=== PATIENT | female | born 1945 | race Caucasian/White ===

== ENCOUNTER 2016-10-20 14:43 | Observation (INO) | payer OTHER ==
--- NOTE | ~2016-10-20 | HP ---
History And Physical [place] [id number] [facility] [place]. [address] NAME: CATY ELY : 45 STATUS : ADM Vianey PAT#: [id number] AGE: 71 ADM/REG DATE : 10/20/16 MR#: [id number] REPORT SERV DATE: 10/20/16 DICTATED BY: WILL ROQUE DATE: 10/20/16 REPORT STATUS : Draft TRANSCRIBED BY: MODL DATE: 10/20/16 DATE OF ADMISSION: 10/20/2016 PRIMARY CARE PROVIDER: Dr. Christopher Soto. LEAK DETECTOR: Dr. Trip Ruiz. CHIEF COMPLAINT: Chest pain worse with exertion and ALFARO. 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 She states approximately one week ago, she awoke with a choking sensation and some chest pressure. She also reports dyspnea on exertion such as taking stairs. With her chest pain, it is sometimes associated with shortness of breath, nausea, dizziness, and belching. She denies any diaphoresis. She reports weakness and fatigue. Chest pain at its most intense was rated a 7/10. At the time of interview in the ER, she is pain-free. The episodes last approximately 5 minutes in duration. She states that many episodes occur with activity and resolve with rest. She reports she has episodes of chest pain daily that are on and off throughout the day. The patient self reports heart attack 10 years ago but no intervention; stroke 20 years ago with no deficit. Denies history of PE or DVT. The patient denies any fever or chills. No palpitations. No syncopal episodes. Denies PND or orthopnea. Of note, the patient states that she ran out of Protonix some time ago and has not had her prescription refilled. PAST MEDICAL HISTORY: 1. Self reports an [place] with no intervention. 2. History of stroke with no deficit. 3. Hypertension. 4. Dyslipidemia. 5. Denies diabetes. 6. GERD. 7. Aortic valve murmur. 8. Glaucoma. 9. Hiatal hernia. PAST SURGICAL HISTORY: 1. Cholecystectomy. 2. Ovarian cyst removed. 3. Tonsillectomy. SOCIAL HISTORY: She is , with three children. She is a retired relations specialist. She walks 3 times weekly for approximately 20 minutes although reports episodes of dyspnea. History And Physical [address] [address] NAME: CATY ELY : 45 STATUS : ADM Vianey PAT#: [id number] AGE: 71 ADM/REG DATE : 10/20/16 MR#: [id number] REPORT SERV DATE: 10/20/16 DICTATED BY: WILL ROQUE DATE: 10/20/16 REPORT STATUS : Draft TRANSCRIBED BY: TEN DATE: 10/20/16 Denies tobacco, alcohol, or illicits. FAMILY HISTORY: No embolic events reported in first-degree relatives. REVIEW OF SYSTEMS: A 14-point review of systems performed, significant for HPI including snores per report with no formal sleep study and recently ran out of her Protonix prescription, otherwise, complete review of systems obtained and negative. ALLERGIES: ALLERGY TO ANTIHISTAMINES, HALLUCINATIONS, HEART RACING; SULFA, HEADACHE; MORPHINE, NAUSEA AND VOMITING; CODEINE, HALLUCINATES, HEART RACES; SULFA, HEADACHE; AND ADHESIVE TAPE, RASH. HOME MEDICATIONS: 1. Amlodipine 5 mg daily. 2. Vitamin D 1200 mg twice daily. 3. Nexium 40 mg daily. 4. Maximum D3 weekly. 5. Spironolactone 25 mg daily. 6. Atenolol 50 mg daily. 7. Aspirin 81 mg daily. 8. Lisinopril 20 mg daily. 9. Pravastatin 20 mg daily. 10.Systane. 11.Afrin spray p.r.n. 12.Antivert 12.5 mg p.r.n. PHYSICAL EXAMINATION: VITAL SIGNS: Blood pressure 135/62, pulse 56, respirations 19, and temperature 98.7. HEENT: Height 5 feet 2 inches. Weight 158 pounds. GENERAL: Cooperative, in no apparent distress. HEENT: Pupils 2 mm, sclera nonicteric. Nares patent. Moist mucous membranes. No xanthelasma. NECK: Trachea midline, no thyromegaly. No JVD. No bruits. LYMPH: No cervical lymphadenopathy. No supraclavicular lymphadenopathy. RESPIRATORY: Unlabored respirations. Breath sounds clear bilaterally to posterior auscultation. No wheezes or rhonchi. CARDIOVASCULAR: Regular rate. No rub or gallop appreciated. A 2/6 murmur best audible at the right sternal border. EXTREMITIES: Without edema. Pulses 2+ bilaterally. ABDOMEN: Soft, nontender, nondistended, normal bowel sounds auscultated throughout. No organomegaly. SKIN: Warm, dry extremities. No pallor, or cyanosis. PSYCHIATRIC: Appropriate affect. Alert, oriented x3. LABORATORY DATA: 1. Troponin 0.03, second pending. Potassium 4.1, BUN 17, creatinine 0.84, glucose 109, and magnesium 2.3. WBC 7.1, hemoglobin 14.7, hematocrit 43.3, and platelet count History And Physical [address] [address] NAME: CATY ELY : 45 STATUS : ADM Vianey PAT#: [id number] AGE: 71 ADM/REG DATE : 10/20/16 MR#: [id number] REPORT SERV DATE: 10/20/16 DICTATED BY: WILL ROQUE DATE: 10/20/16 REPORT STATUS : Draft TRANSCRIBED BY: TEN DATE: 10/20/16 302,000. EKG sinus rhythm. RBBB, inferior Q-waves. 2. Echo 2013: Mild aortic stenosis with mild regurgitation. Mild diastolic dysfunction. 3. MPI 2014: No ischemia. 4. Catheterization in 1997 (CONN: Normal coronaries). EF 60%. 5. Chest pain with exertional component. The patient will be observed in the CPOU to rule out myocardial infarction with serial enzymes and serial EKGs and held n.p.o. for MPI in the morning. If second troponin negative, the patient will be discharged home; if low risk, no ischemia, if anything suggestive of ischemia, Cardiology referral will be initiated. Otherwise, the patient will be asked to follow up with PCP in one to two weeks with all studies being sent to their office. 6. ALFARO. Check echocardiogram and TSH. 7. Hypertension. Continue home medications. Hold atenolol. 8. Dyslipidemia. Continue statin. 9. GERD. Continue Protonix. AUGUSTINE/TEN TEE Stevenson, SCREEN PRINTING PASTER-BC / [id number] CC: TEE Stevenson, SCREEN PRINTING PASTER-BC Christopher Soto M.D. Trip Ruiz M.D.
[2016-10-20 11:41] LABS: BASOPHILS 0.6 %; BASOPHILS ABSOLUTE 0.04 10/3/uL (0.0-0.16); EOSINOPHILS 2.1 %; EOSINOPHILS ABSOLUTE 0.15 10/3/uL (0.0-0.53); HEMATOCRIT 43.3 % (36.0-48.0); HEMOGLOBIN 14.7 g/dL (12.0-16.0); IMMATURE GRANULOCYTES 0.3 %; IMMATURE GRANULOCYTES ABSOLUTE 0.02 10/3/uL (0.0-0.11); LYMPHOCYTES 27.1 %; LYMPHOCYTES ABSOLUTE 1.93 10/3/uL (0.67-4.30); MANUAL DIFF NO %; MEAN CORPUS HGB CONC 33.9 g/dL (32.0-36.0); MEAN CORPUSCULAR HEMOGLOB 30.8 pg (26.0-34.0); MEAN CORPUSCULAR VOLUME 90.8 fL (80-100); MONOCYTES 7.2 %; MONOCYTES ABSOLUTE 0.51 10/3/uL (0.21-1.20); NEUTROPHILS 62.7 %; NEUTROPHILS ABSOLUTE 4.47 10/3/uL (2.02-8.40); PLATELET COUNT 302 10/3/uL (150-400); RBC DISTRIBUTION WIDTH 12.9 % (12.0-16.0); RED CELL COUNT 4.77 10/6/uL (4.0-5.6); WHITE BLOOD CELLS 7.1 10/3/uL (4.5-10.5)
[2016-10-20 11:50] LABS: PARTIAL THROMBO TIME 28.4 SEC (22.5-37.2); PROTIME (NOT ORD) 12.7 SEC (12.0-14.5)
[2016-10-20 11:57] LABS: CALCIUM, SERUM 9.1 MG/DL (8.5-10.4); CHEST PAIN PROFILE TAT 0 Hrs 22 Mins; CHLORIDE, SERUM 105 MMOL/L (96-112); CO2 (CARBON DIOXIDE) 28 MMOL/L (24-34); CREATININE 0.84 MG/DL (0.55-1.02); GFR AFRICAN AMERICAN 81 ML/MIN (>=60); GFR NON AFRICAN AMERICAN 70 ML/MIN (>=60); GLUCOSE, SERUM 109 MG/DL (60-99); POTASSIUM, SERUM 4.1 MMOL/L (3.5-5.3); SODIUM, SERUM 138 MMOL/L (135-148); TROPONIN I 0.03 NG/ML (<0.05)
[2016-10-20 11:59] LABS: BUN (BLOOD UREA NITROGEN) 17 MG/DL (6-23)
[~2016-10-20 14:43] MED LIST: AFRIN15 NAS; ALIGN PO; ATEN25 PO; ATEN50 PO; BONIVA150 MG PO; C5 PO; CALTRA600D PO; CEFT5 PO; CENTRUM TAB1 TAB PO; COUMADIN7.5 MG PO; FOLIC ACID400 MC1 PO; HALF81 PO; MACROBID PO; MAXIMUM D3 PO; MCZ125 PO; MULTIPLE VIT PO; NEXIUM40 PO; NORV5 PO; OS500 PO; PRAVAC PO; PRIN20 PO; SPIRO25 PO; SYMAX-SR0.375 MG PO; SYSTANE OP; VITAMIN B-12; VITAMIN C500 M3 PO
[2016-10-20] MEDS ORDERED: ASAB PO (16:32)
[2016-10-20] MEDS ORDERED: REFRESH OPH (16:32)
[2016-10-20] MEDS ORDERED: LUMIGAN OPH (16:33)
[2016-10-20] MEDS ORDERED: PRIN20 PO (16:33)
[2016-10-20] MEDS ORDERED: TWYNSTA PO (16:35)
[2016-10-20] MEDS ORDERED: ATEN50 PO (16:35)
[2016-10-20] MEDS ORDERED: PRAVAC PO (16:36)
[2016-10-20] MEDS ORDERED: MOBIC15 MG PO (16:36)
[2016-10-20] MEDS ORDERED: VITAMIN D31000 UNIT PO (16:37)
[2016-10-20] MEDS ORDERED: CENTRUM PO (16:37)
[2016-10-20] MEDS ORDERED: MAGNESIUM PO (16:38)
[2016-10-20] MEDS ORDERED: ACET500CAP PO (16:39)
[2016-10-20] MEDS ORDERED: 8 HOUR650 MG PO (16:40)
[2016-10-20] MEDS ORDERED: ICY HOT OINTMENT TOP (16:40)
[2016-10-20 17:41] LABS: FREE T4 0.99 NG/DL (0.76-1.46); TROPONIN I 0.03 NG/ML (<0.05)
[2016-10-20 17:42] LABS: ULTRASENSITIVE TSH 0.88 MCIU/ML (0.358-3.740)
[2016-10-21] MEDS ORDERED: PROTONIX PO (15:32)
[2016-11-09] MEDS ORDERED: IBU600 (09:16)
[2016-11-09] MEDS ORDERED: NORV5 PO (09:16)
[2016-11-09] MEDS ORDERED: CYANO1000T PO (13:54)
== END 2016-10-21 15:57 | disposition home or self-care (01) ==
LOC: ER 14:43 → CDU1 15:10 → CDU2 16:07
PROVIDERS: Clinical Nurse Specialist; Hospitalist
DX: R07.89 Other chest pain (principal); I35.0 Nonrheumatic aortic (valve) stenosis; I10 Essential (primary) hypertension; E78.00 Pure hypercholesterolemia, unspecified; I25.2 Old myocardial infarction; E78.5 Hyperlipidemia, unspecified; K21.9 Gastro-esophageal reflux disease without esophagitis; Z86.73 Personal history of transient ischemic attack (TIA), and cerebral infarction without residual deficits; Z88.2 Allergy status to sulfonamides; Z88.5 Allergy status to narcotic agent; Z90.49 Acquired absence of other specified parts of digestive tract; Z90.89 Acquired absence of other organs
CPT/HCPCS: 71020; 78452; 80048; 83735; 84439; 84443; 84484; 85025; 85610; 85730; 93005; 93017; 99285; A9270-GY; A9502; C8929; G0378; Q9957